=== PATIENT | male | born 1975 | race Caucasian/White ===

== ENCOUNTER → 2016-03-03 | Outpatient (CLI) | payer MEDICARE, MEDICAID ==
[~2016-03-03] MED LIST: ATEN1TAB3 PO; ATEN1TAB45 PO; AZIT250T5 PO; BUSP15TA55 PO; CPR500T PO; DIVA500T15 PO; DVL500TSR PO; GABA300C PO; GBPN300C PO; IBP800T PO; LOXA5CAP PO; MULTI-VITAMIN; NAPR550T3 PO; NO HOME MEDICATIONS; OMEP20CA12 PO; PANT40TA2 PO; PRED20TA PO; QUET200T28 PO; QUET50TA3; RSP50S IM; SEIZURE MED PO; [UNRECOGNIZED DRUG - OTHER]; [UNRECOGNIZED DRUG - REMARK] PO; seizure med
--- NOTE | 2016-03-03 13:44 | Diagnostic Imaging Report ---
INDICATION: Right hand pain. AP and lateral views of the right hand are obtained. No fracture or acute bony abnormality is seen. IMPRESSION: Negative right hand. Dictated by: Dictated on workstation # [id number]
== END ==
LOC: RAD 11:03
PROVIDERS: ATTEND Family Medicine
DX: M79.641 Pain in right hand (principal)
CPT/HCPCS: 73120

== ENCOUNTER 2016-05-08 19:47 | Emergency (ER) | payer MEDICARE, MEDICAID ==
[~2016-05-08] VITALS: Ht 193 cm; Wt 104.5 kg
[2016-05-08 20:38] VITALS: BP 116/76
== END 2016-05-08 20:39 | disposition home or self-care (01) ==
LOC: ED 19:49
DX: S60.211A Contusion of right wrist, initial encounter (principal); W22.09XA Striking against other stationary object, initial encounter; Y92.199 Unspecified place in other specified residential institution as the place of occurrence of the external cause
CPT/HCPCS: 73100; 99282

== ENCOUNTER 2016-05-09 19:44 | Emergency (ER) | payer MEDICARE, MEDICAID ==
[~2016-05-09] VITALS: Ht 193 cm; Wt 102.3 kg
[2016-05-09 20:09] VITALS: BP 125/77
== END 2016-05-09 20:12 | disposition home or self-care (01) ==
LOC: ED 19:46
DX: S90.811A Abrasion, right foot, initial encounter (principal); W25.XXXA Contact with sharp glass, initial encounter; Y92.009 Unspecified place in unspecified non-institutional (private) residence as the place of occurrence of the external cause
CPT/HCPCS: 99281; 99283

== ENCOUNTER → 2016-05-09 | Outpatient (CLI) | payer MEDICARE, MEDICAID | LOC: EMS 22:10 | DX: Z53.20 Procedure and treatment not carried out because of patient's decision for unspecified reasons (principal) ==